=== PATIENT | male | born 2000 | race African-American/Black ===

== ENCOUNTER → 2022-03-15 | Emergency (ER) | payer MEDICAID ==
[~2022-03-15] VITALS: Ht 167.6 cm; Wt 61.0 kg
[~2022-03-15] MED LIST: OLANZAPINE 10 MG/VIAL IM ONE; PRAZOSIN HCL 1MG CAPSULE PO SCH
[2022-03-15 02:57] LABS: BASOPHILS % 0.6 % (0.0-2.0); EOSINOPHILS % 1.4 % (0.0-5.0); HEMATOCRIT. 38.3 % (42.0-52.0); LYMPHOCYTES % 19.8 % (20.0-50.0); MEAN CORPUSCULAR HEMOGLOBIN 30.2 pg (28.0-32.0); MEAN CORPUSCULAR VOLUME 88.8 fL (80.0-94.0); MEAN PLATELET VOLUME 8.8 fl (7.4-10.4); MONOCYTES % 10.1 % (2.0-8.0); NEUTROPHILS % 68.1 % (40.0-76.0); PLATELET 212 x1000/uL (130-400); RED BLOOD CELL COUNT 4.31 mill/uL (4.7-6.1); RED CELL DISTRIBUTION WIDTH 14.8 % (11.6-14.6)
[2022-03-15 03:07] LABS: CHLORIDE 111 mEq/L (98-107)
[2022-03-15 03:13] LABS: ETHANOL BLOOD < 10 mg/dL
[2022-03-15] MEDS: DIVALPROEX SODIUM 500MG DR TABLET PO SCH ×2 (09:20→21:00)
[2022-03-15] MEDS: OLANZAPINE 5MG TABLET ODT PO SCH ×2 (09:20→18:48)
[2022-03-15 09:24] LABS: *AMPHETAMINES SCREEN URINE NEGATIVE (NEGATIVE); *BARBITURATES SCREEN URINE NEGATIVE (NEGATIVE); *BENZODIAZEPINES SCREEN URINE NEGATIVE (NEGATIVE); *COCAINE SCREEN URINE NEGATIVE (NEGATIVE); CANNABINOID URINE SCREEN NEGATIVE (NEGATIVE); METHADONE URINE SCREEN NEGATIVE (NEGATIVE); OPIATES URINE SCREEN NEGATIVE (NEGATIVE); PHENCYCLIDINE URINE SCREEN NEGATIVE (NEGATIVE)
[2022-03-16] MEDS: OLANZAPINE 5MG TABLET ODT PO SCH ×2 (09:30→17:26)
[2022-03-16] MEDS: DIVALPROEX SODIUM 500MG DR TABLET PO SCH (09:30)
[2022-03-16 19:08] VITALS: BP 130/72
== END ==
LOC: ER 00:34
DX: R45.1 Restlessness and agitation (principal); Z20.822 Contact with and (suspected) exposure to COVID-19
CPT/HCPCS: 36415; 80053; 80305; 80307; 80320; 80329; 85025; 93005; 96372; 99285; C9803; J3490; U0003; U0005; G0480